=== PATIENT | female | born 1995 | race Caucasian/White ===

== ENCOUNTER 2016-10-27 16:43 | Emergency (ER) | payer SELFPAY ==
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
[2016-10-27] MEDS ORDERED: MOTRIN PO ONE (21:03)
[2016-10-27] MEDS ORDERED: FLEXERIL PO ONE (21:03)
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
[2016-10-27 21:30] VITALS: BP 120/82
== END 2016-10-27 21:29 | disposition home or self-care (01) ==
LOC: ED 16:43
DX: S16.1XXA Strain of muscle, fascia and tendon at neck level, initial encounter (principal); Z87.891 Personal history of nicotine dependence; X58.XXXA Exposure to other specified factors, initial encounter; Y93.9 Activity, unspecified; Y99.9 Unspecified external cause status; Y92.9 Unspecified place or not applicable
CPT/HCPCS: 72125; 99283

== ENCOUNTER 2016-10-30 14:44 | Emergency (ER) | payer SELFPAY | END 2016-10-30 16:50 | disposition left against medical advice (07) | LOC: ED 14:44 | DX: R19.7 Diarrhea, unspecified (principal); Z53.21 Procedure and treatment not carried out due to patient leaving prior to being seen by health care provider ==